=== PATIENT | male | born 1975 | race Hispanic/Latino ===

== ENCOUNTER 2018-12-04 18:06 | Emergency (ER) | payer MEDICARE ==
--- NOTE | 2018-12-04 18:24 | Emergency Department Report ---
Blank Doc - Documentation Documentation: This is a 43-year-old male that presents with URI symptoms. This initial assessment/diagnostic orders/clinical plan/treatment(s) is/are subject to change based on patient's health status, clinical progression and re- assessment by fellow clinical providers in the ED. Further treatment and workup at subsequent clinical providers discretion. Patient/guardians urged not to elope from the ED as their condition may be serious if not clinically assessed and managed. Initial orders include: 1- Patient sent to [facility] for further evaluation and treatment 2- cxr
[2018-12-04 18:26] VITALS: BP 148/77
--- NOTE | 2018-12-04 19:40 | XRay Report ---
PROCEDURE: XR CHEST ROUTINE 2V HISTORY: cough FINDINGS: Frontal and lateral views of the chest were acquired. The heart is normal in size. The lung s are hyperinflated. There is no consolidative infiltrate. IMPRESSION: Hyperinflation This document is electronically signed by Maurice Jain MD., December 04 2018 07:38:09 PM ET
--- NOTE | 2018-12-04 20:40 | Emergency Department Report ---
- General Chief Complaint: Upper Respiratory Infection Stated Complaint: CONGESTION Time Seen by Provider: 12/04/18 18:23 Source: patient Mode of arrival: Ambulatory Limitations: No Limitations - History of Present Illness Initial Comments: 43-year-old male comes in complaining of cough and nasal congestion. Patient reports he saw his primary care provider but she didn't give him anything for his cough. Patient denies any fever or chills no nausea no vomiting no chest pain or shortness of breath. Patient reports that he has an albuterol inhaler and he uses it for his cough but does not help all the way. Patient does not smoke cigarettes. Past medical history of diabetes hypertension and psych history. MD Complaint: nasal congestion -: days(s) (7) Improves With: nothing Worsens With: nothing Associated Symptoms: nasal congestion, cough. denies: fever, chills, myalgias, diaphoresis, sore throat, stiff neck, chest pain, shortness of breath, abdominal pain, nausea, vomiting, diarrhea, dysuria, rash, confusion, right sweats, weight loss, epistaxis, hoarseness, ear pain Treatments Prior to Arrival: other (albuterol inhaler) - Related Data Previous Rx's Medication Instructions Recorded Last Taken Type Ciprofloxacin [Ciprofloxacin ORAL 500 mg PO Q12H #20 ml 03/15/15 Unknown Rx LIQ] Hyoscyamine (Nf) [Levsin (Nf)] 1.875 mg PO Q4H PRN #16 tabcap 03/15/15 Unknown Rx Ondansetron [Zofran] 4 mg PO ONCE PRN #16 tablet 03/15/15 Unknown Rx Cyclobenzaprine [Flexeril 10 MG 10 mg PO TID PRN #15 tablet 07/19/15 Unknown Rx TAB] Naproxen [Naprosyn 125 mg/5 ml] 500 mg PO Q12H PRN #15 bottle 07/19/15 Unknown Rx Benzonatate [Tessalon Perle] 100 mg PO Q8H PRN #21 capsule 12/04/18 Unknown Rx Fluticasone [Flonase] 1 spray NS QDAY #1 bottle 12/04/18 Unknown Rx Loratadine/Pseudoephedrine 1 tab PO Q12H #24 tablet 12/04/18 Unknown Rx [Claritin-D 12HR] Allergies Allergy/AdvReac Type Severity Reaction Status Date / Time No Known Allergies Allergy Verified 12/04/18 18:08 ED Review of Systems ROS: Stated complaint: CONGESTION Other details as noted in HPI ENT: congestion Respiratory: cough ED Past Medical Hx - Past Medical History Previous Medical History?: Yes Hx Hypertension: Yes Hx Diabetes: Yes Hx Psychiatric Treatment: Yes - Surgical History Past Surgical History?: No - Social History Smoking Status: Never Smoker Substance Use Type: None - Medications Home Medications: Home Medications Medication Instructions Recorded Confirmed Last Taken Type Ciprofloxacin [Ciprofloxacin ORAL 500 mg PO Q12H #20 ml 03/15/15 Unknown Rx LIQ] Hyoscyamine (Nf) [Levsin (Nf)] 1.875 mg PO Q4H PRN #16 tabcap 03/15/15 Unknown Rx Ondansetron [Zofran] 4 mg PO ONCE PRN #16 tablet 03/15/15 Unknown Rx Cyclobenzaprine [Flexeril 10 MG 10 mg PO TID PRN #15 tablet 07/19/15 Unknown Rx TAB] Naproxen [Naprosyn 125 mg/5 ml] 500 mg PO Q12H PRN #15 bottle 07/19/15 Unknown Rx Benzonatate [Tessalon Perle] 100 mg PO Q8H PRN #21 capsule 12/04/18 Unknown Rx Fluticasone [Flonase] 1 spray NS QDAY #1 bottle 12/04/18 Unknown Rx Loratadine/Pseudoephedrine 1 tab PO Q12H #24 tablet 12/04/18 Unknown Rx [Claritin-D 12HR] ED Physical Exam - General Limitations: No Limitations General appearance: alert, in no apparent distress - Head Head exam: Present: atraumatic, normocephalic - Eye Eye exam: Present: normal appearance - ENT ENT exam: Present: mucous membranes moist - Expanded ENT Exam Expanded Teeth exam: Present: dental caries - Neck Neck exam: Present: normal inspection - Respiratory Respiratory exam: Present: normal lung sounds bilaterally. Absent: respiratory distress - Cardiovascular Cardiovascular Exam: Present: regular rate, normal rhythm. Absent: systolic murmur, diastolic murmur, rubs, gallop - GI/Abdominal GI/Abdominal exam: Present: soft, normal bowel sounds - Rectal Rectal exam: Present: deferred - Extremities Exam Extremities exam: Present: normal inspection - Back Exam Back exam: Present: normal inspection - Neurological Exam Neurological exam: Present: alert, oriented X3 - Psychiatric Psychiatric exam: Present: normal affect, normal mood - Skin Skin exam: Present: warm, dry, intact, normal color. Absent: rash ED Course Vital Signs 12/04/18 18:23 Temperature 97.8 F Pulse Rate 102 H Respiratory 20 Rate Blood Pressure 148/77 [Left] O2 Sat by Pulse 96 Oximetry ED Medical Decision Making - Medical Decision Making Patient has been evaluated by this provider a [facility]. Chest x-ray shows hyperinflation no signs of pneumonia bronchitis. Discussed the patient I will place him on Flonase Claritin-D and Tessalon Perles to help with his nasal congestion and cough. Discussed the patient is to increase his water intake while taking medication and to follow up with his primary care provider Dr. Rasheed Sotelo. Critical care attestation.: If time is entered above; I have spent that time in minutes in the direct care of this critically ill patient, excluding procedure time. ED Disposition Clinical Impression: Nasal congestion, Cough Disposition: DC-01 TO HOME OR SELFCARE Is pt being admited?: No Does the pt Need Aspirin: No Condition: Stable Instructions: Antitussive/Decongestant (By mouth), Allergic Rhinitis (ED), Acute Cough (ED) Additional Instructions: Please take medication as prescribed. He is very important for you to increase her water intake while taking these medications. Follow up with her primary care provider in the next 5-7 days if your symptoms persist or gets worse Prescriptions: Loratadine/Pseudoephedrine [Claritin-D 12HR] 1 tab PO Q12H #24 tablet Fluticasone [Flonase] 1 spray NS QDAY #1 bottle Benzonatate [Tessalon Perle] 100 mg PO Q8H PRN #21 capsule PRN Reason: Cough Referrals: RASHEED SOTELO DO [Referring] - 3-5 Days
== END 2018-12-04 20:50 | disposition home or self-care (01) ==
LOC: ED 18:06
DX: R05 Cough (principal); R09.81 Nasal congestion; I10 Essential (primary) hypertension; E11.9 Type 2 diabetes mellitus without complications
CPT/HCPCS: 71046; 99283

== ENCOUNTER 2019-01-12 18:59 | Emergency (ER) | payer MEDICARE ==
[2019-01-12] MEDS ORDERED: ULTRAM PO ONE (20:16)
[2019-01-12] MEDS ORDERED: TORADOL IM ONE (20:16)
--- NOTE | 2019-01-12 21:12 | Emergency Department Report ---
ED Extremity Problem HPI - General Chief complaint: Extremity Injury, Lower Stated complaint: FALL/ (R) LEG PAIN Time Seen by Provider: 01/12/19 20:12 Source: EMS Mode of arrival: Ambulatory Limitations: No Limitations - History of Present Illness Initial comments: 43-year-old male with a past medical history diabetes, hypertension, and psychiatric disorder presents to the right knee pain after ground level fall around 2 PM. Pain is rated 10/10 in intensity, constant, worse with palpation. Patient states he lost his balance and fell on his left side and denies head injury or LOC. Denies previous leg injury. Patient is in no acute distress. Severity scale (0 -10): 10 - Related Data Previous Rx's Medication Instructions Recorded Last Taken Type Ciprofloxacin [Ciprofloxacin ORAL 500 mg PO Q12H #20 ml 03/15/15 Unknown Rx LIQ] Hyoscyamine (Nf) [Levsin (Nf)] 1.875 mg PO Q4H PRN #16 tabcap 03/15/15 Unknown Rx Ondansetron [Zofran] 4 mg PO ONCE PRN #16 tablet 03/15/15 Unknown Rx Cyclobenzaprine [Flexeril 10 MG 10 mg PO TID PRN #15 tablet 07/19/15 Unknown Rx TAB] Naproxen [Naprosyn 125 mg/5 ml] 500 mg PO Q12H PRN #15 bottle 07/19/15 Unknown Rx Benzonatate [Tessalon Perle] 100 mg PO Q8H PRN #21 capsule 12/04/18 Unknown Rx Fluticasone [Flonase] 1 spray NS QDAY #1 bottle 12/04/18 Unknown Rx Loratadine/Pseudoephedrine 1 tab PO Q12H #24 tablet 12/04/18 Unknown Rx [Claritin-D 12HR] Naproxen [Naprosyn TAB] 500 mg PO BID PRN #30 tablet 01/12/19 Unknown Rx traMADol [Ultram 50 MG tab] 50 mg PO Q6HR PRN #20 tablet 01/12/19 Unknown Rx Allergies Allergy/AdvReac Type Severity Reaction Status Date / Time No Known Allergies Allergy Verified 12/04/18 18:08 ED Review of Systems ROS: Stated complaint: FALL/ (R) LEG PAIN Other details as noted in HPI Comment: All other systems reviewed and negative ED Past Medical Hx - Past Medical History Previous Medical History?: Yes Hx Hypertension: Yes Hx Diabetes: Yes Hx Psychiatric Treatment: Yes - Surgical History Past Surgical History?: No - Social History Smoking Status: Never Smoker Substance Use Type: None - Medications Home Medications: Home Medications Medication Instructions Recorded Confirmed Last Taken Type Ciprofloxacin [Ciprofloxacin ORAL 500 mg PO Q12H #20 ml 03/15/15 Unknown Rx LIQ] Hyoscyamine (Nf) [Levsin (Nf)] 1.875 mg PO Q4H PRN #16 tabcap 03/15/15 Unknown Rx Ondansetron [Zofran] 4 mg PO ONCE PRN #16 tablet 03/15/15 Unknown Rx Cyclobenzaprine [Flexeril 10 MG 10 mg PO TID PRN #15 tablet 07/19/15 Unknown Rx TAB] Naproxen [Naprosyn 125 mg/5 ml] 500 mg PO Q12H PRN #15 bottle 07/19/15 Unknown Rx Benzonatate [Tessalon Perle] 100 mg PO Q8H PRN #21 capsule 12/04/18 Unknown Rx Fluticasone [Flonase] 1 spray NS QDAY #1 bottle 12/04/18 Unknown Rx Loratadine/Pseudoephedrine 1 tab PO Q12H #24 tablet 12/04/18 Unknown Rx [Claritin-D 12HR] Naproxen [Naprosyn TAB] 500 mg PO BID PRN #30 tablet 01/12/19 Unknown Rx traMADol [Ultram 50 MG tab] 50 mg PO Q6HR PRN #20 tablet 01/12/19 Unknown Rx ED Physical Exam - General Limitations: No Limitations - Other Other exam information: General: No limitations, patient is alert in no acute distress Head exam: Atraumatic, normocephalic Eyes exam: Normal appearance, pupils equal reactive to light, extraocular movements intact ENT: Moist mucous membrane, normal oropharynx Neck exam: Normal inspection, full range of motion, no meningismus nontender Respiratory exam: Clear to auscultation bilateral, no wheezes, rales, crackles Cardiovascular: Normal rate and rhythm, normal heart sounds Abdomen: Soft, nondistended, and nontender, with normal bowel sounds, no rebound, or guarding Extremity: No gross deformity or edema. Tenderness at the patella tendon. 2+ DP pulse. Limited flexion secondary to pain. Back: Normal Inspection, full range of motion, no tenderness Neurologic: Alert, oriented x3, cranial nerves intact, no motor or sensory deficit Psychiatric: normal affect, normal mood Skin: Warm, dry, intact ED Course Vital Signs 01/12/19 19:37 Temperature 98.9 F Pulse Rate 86 Respiratory 19 Rate Blood Pressure 120/74 [Left] O2 Sat by Pulse 98 Oximetry ED Medical Decision Making - Radiology Data Radiology results: report reviewed PROCEDURE: RIGHT TIBIA AND FIBULA TECHNIQUE: RIGHT tibia and fibula radiographs, AP and lateral views. CPT 59746 HISTORY: Trauma COMPARISONS: None . FINDINGS: Fracture (s) and/or Dislocation(s): None . Joint space(s): Normal . Soft tissues: Normal . Bone mineralization: Normal . Foreign bodies: None . IMPRESSION: Normal Examination . - Medical Decision Making Patient received tramadol and Toradol for pain no fxt knee immobilizer and crutches ortho f/u - Differential Diagnosis fracture, contusion, sprain Critical Care Time: No Critical care attestation.: If time is entered above; I have spent that time in minutes in the direct care of this critically ill patient, excluding procedure time. ED Disposition Clinical Impression: Knee strain Qualifiers: Encounter type: initial encounter Laterality: right Qualified Code(s): S86.911A - Strain of unspecified muscle(s) and tendon(s) at lower leg level, right leg, initial encounter Disposition: TO HOME OR SELFCARE Is pt being admited?: No Does the pt Need Aspirin: No Condition: Stable Instructions: Knee Sprain (ED) Additional Instructions: Take the medication as prescribed. Follow up with your doctor or the clinic/doctor provided. Return if symptoms worsen as indicated by your discharge instructions Prescriptions: Naproxen [Naprosyn TAB] 500 mg PO BID PRN #30 tablet PRN Reason: Pain, Moderate (4-6) traMADol [Ultram 50 MG tab] 50 mg PO Q6HR PRN #20 tablet PRN Reason: Pain , Severe (7-10) Referrals: AILYN IRVIN MD [Primary Care Provider] - 3-5 Days [facility] [Provider Group] - 3-5 Days (Primary care clinic) NINFA PATEL MD [Staff Physician] - 3-5 Days (Orthopedic doctor) Time of Disposition: 22:50
[2019-01-12] MEDS ORDERED: TORADOL ONE (22:27)
[2019-01-12] MEDS ORDERED: ULTRAM ONE (22:27)
--- NOTE | 2019-01-12 22:43 | XRay Report ---
PROCEDURE: RIGHT TIBIA AND FIBULA TECHNIQUE: RIGHT tibia and fibula radiographs, AP and lateral views. CPT 38087 HISTORY: Trauma COMPARISONS: None . FINDINGS: Fracture (s) and/or Dislocation(s): None . Joint space(s): Normal . Soft tissues: Normal . Bone mineralization: Normal . Foreign bodies: None . IMPRESSION: Normal Examination . This document is electronically signed by Yoan Caldwell MD., January 12 2019 10:40:50 PM ET
[2019-01-13 19:36] VITALS: BP 120/74
== END 2019-01-12 23:23 | disposition home or self-care (01) ==
LOC: ED 18:59
DX: S86.911A Strain of unspecified muscle(s) and tendon(s) at lower leg level, right leg, initial encounter (principal); E11.9 Type 2 diabetes mellitus without complications; I10 Essential (primary) hypertension; W18.39XA Other fall on same level, initial encounter; Y93.89 Activity, other specified; Y92.89 Other specified places as the place of occurrence of the external cause; Y99.8 Other external cause status
CPT/HCPCS: 29505; 73590; 96372; 99284; J1885

== ENCOUNTER 2022-02-03 20:14 | Emergency (ER) | payer MEDICARE ==
[2022-02-03 21:46] VITALS: BP 124/80
--- NOTE | 2022-02-04 07:28 | Emergency Department Report ---
HPI - General Chief Complaint: Extremity Injury, Lower Time Seen by Provider: 02/04/22 07:13 - HPI HPI: Room 37 The patient is a 46-year-old male present with chief complaint of right lower extremity swelling. The patient states he noted swelling of his right lower extremity 4 days ago. 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 The patient states he believes that the shoe was too small and this is what caused his swelling. Patient states he has pain only with weightbearing. Patient denies history of fever ED Past Medical Hx - Past Medical History Previous Medical History?: Yes Hx Hypertension: Yes Hx Diabetes: Yes Hx Psychiatric Treatment: Yes - Surgical History Past Surgical History?: Yes Additional Surgical History: Amputation of toes right foot. - Family History Family history: no significant - Social History Smoking Status: Never Smoker Substance Use Type: None (Denies illicit drug use) - Medications Home Medications: Home Medications Medication Instructions Recorded Confirmed Last Taken Type Ciprofloxacin [Ciprofloxacin ORAL 500 mg PO Q12H #20 ml 03/15/15 Unknown Rx LIQ] Hyoscyamine (Nf) [Levsin (Nf)] 1.875 mg PO Q4H PRN #16 tabcap 03/15/15 Unknown Rx Ondansetron [Zofran] 4 mg PO ONCE PRN #16 tablet 03/15/15 Unknown Rx Cyclobenzaprine [Flexeril 10 MG 10 mg PO TID PRN #15 tablet 07/19/15 Unknown Rx TAB] Naproxen (Nf) [Naprosyn 125 mg/5 500 mg PO Q12H PRN #15 bottle 07/19/15 Unknown Rx ml] Benzonatate [Tessalon Perle] 100 mg PO Q8H PRN #21 capsule 12/04/18 Unknown Rx Fluticasone [Flonase] 1 spray NS QDAY #1 bottle 12/04/18 Unknown Rx Loratadine/Pseudoephedrine 1 tab PO Q12H #24 tablet 12/04/18 Unknown Rx [Claritin-D 12HR] Naproxen [Naprosyn TAB] 500 mg PO BID PRN #30 tablet 01/12/19 Unknown Rx traMADoL [Ultram 50 MG tab] 50 mg PO Q6HR PRN #20 tablet 01/12/19 Unknown Rx Furosemide [Lasix] 20 mg PO QDAY #7 tablet 02/04/22 Unknown Rx ED Review of Systems ROS: Stated complaint: RIGHT FOOT SWOLLEN Other details as noted in HPI Constitutional: denies: fever Eyes: denies: eye pain ENT: denies: throat pain Respiratory: no symptoms reported Cardiovascular: denies: chest pain Endocrine: no symptoms reported Gastrointestinal: denies: abdominal pain Genitourinary: denies: dysuria Musculoskeletal: denies: back pain Neurological: denies: headache Hematological/Lymphatic: other (Bilateral lower extremity edema) Physical Exam - Physical Exam Vital Signs: Vital Signs 02/03/22 21:19 Temperature 98.0 F Pulse Rate 91 H Respiratory 18 Rate Blood Pressure 124/80 O2 Sat by Pulse 97 Oximetry Physical Exam: GENERAL: The patient is well-developed well-nourished male lying on stretcher not appearing to be in acute distress. [] HEENT: Normocephalic. Atraumatic. Extraocular motions are intact. Patient has moist mucous membranes. NECK: Supple. Trachea midline CHEST/LUNGS: Clear to auscultation. There is no respiratory distress noted. HEART/CARDIOVASCULAR: Regular. There is no tachycardia. There is no gallop rub or murmur. ABDOMEN: Abdomen is soft, with tenderness to palpation in the right upper quadrant, midepigastric and left upper quadrant. The remainder the abdomen is soft and nontender. Patient has normal bowel sounds. There is no abdominal distention. SKIN: There is no rash. There 1-2+ bilateral lower extremity pitting edema. There is no diaphoresis. NEURO: The patient is awake, alert, and oriented. The patient is cooperative. The patient has no focal neurologic deficits. The patient has normal speech. GCS 15 MUSCULOSKELETAL: There is no evidence of acute injury. ED Course Vital Signs 02/03/22 21:19 Temperature 98.0 F Pulse Rate 91 H Respiratory 18 Rate Blood Pressure 124/80 O2 Sat by Pulse 97 Oximetry ED Medical Decision Making - Lab Data Result diagrams: 02/04/22 08:34 02/04/22 08:34 Laboratory Tests 02/04/22 02/04/22 08:34 08:34 WBC 13.7 H RBC 4.62 Hgb 13.0 Hct 40.6 MCV 88 MCH 28 MCHC 32 RDW 13.9 Plt Count 366 Lymph % (Auto) 15.0 [place] % (Auto) 11.0 H Eos % (Auto) 2.2 Baso % (Auto) 0.6 Lymph # (Auto) 2.1 [place] # (Auto) 1.5 H Eos # (Auto) 0.3 Baso # (Auto) 0.1 Seg Neutrophils % 71.2 H Seg Neutrophils # 9.8 H Sodium 134 L Potassium 3.8 Chloride 97.4 L Carbon Dioxide 25 Anion Gap 15 BUN 9 Creatinine 0.7 L Estimated GFR > 60 BUN/Creatinine Ratio 13 Glucose 212 H Calcium 8.8 Total Bilirubin 0.60 AST 13 ALT 10 Alkaline Phosphatase 85 NT-Pro-B Natriuret Pep 24.37 Total Protein 6.7 Albumin 4.0 Albumin/Globulin Ratio 1.5 - Radiology Data Radiology results: report reviewed (Bilateral lower extremity Doppler), image reviewed (Bilateral lower extremity Doppler) [facility] [address] [place] [address] Vascular Lab Report Signed Patient: LEODAN DECKER MR#: [id number] : 1975 Acct:[id number] Age/Sex: 46 / M ADM Date: 02/03/22 Loc: ED Attending Dr: Ordering Physician: JIMI WHITAKER MD Date of Service: 02/04/22 Procedure(s): VL venous duplex LE BILAT Accession Number(s): [id number] cc: JIMI WHITAKER MD Bilateral lower extremity Doppler venous ultrasound INDICATION: Edema FINDINGS: Bilateral common femoral veins, superficial femoral veins and popliteal veins have normal compressibility and phasic flow IMPRESSION: No evidence for DVT. Signer Name: Richie Vazquez MD Signed: 02/04/2022 8:38 AM Workstation Name: [id number] Transcribed By: CW Dictated By: JANEEN VAZQUEZ MD Electronically Authenticated By: JANEEN VAZQUEZ MD Signed Date/Time: 02/04/22837 DD/ 7 TD/TT: - Differential Diagnosis Peripheral edema, hypoalbuminemia, renal failure, CHF Critical care attestation.: If time is entered above; I have spent that time in minutes in the direct care of this critically ill patient, excluding procedure time. ED Disposition Clinical Impression: Peripheral edema Disposition: HOME / SELF CARE / HOMELESS Is pt being admited?: No Does the pt Need Aspirin: No Condition: Stable Instructions: Peripheral Edema Additional Instructions: Return to the emergency department should you develop worsening symptoms, inability to tolerate food or liquids, high fever or any other concerns Prescriptions: Furosemide [Lasix] 20 mg PO QDAY #7 tablet Referrals: BILL ENGLE MD [Primary Care Provider] - 3-5 Days Time of Disposition: 09:55
--- NOTE | 2022-02-04 08:43 | Vascular Lab Report ---
Bilateral lower extremity Doppler venous ultrasound INDICATION: Edema FINDINGS: Bilateral common femoral veins, superficial femoral veins and popliteal veins have normal c ompressibility and phasic flow IMPRESSION: No evidence for DVT. Signer Name: Richie Vazquez MD Signed: 02/04/2022 8:38 AM Workstation Name: [id number]
[2022-02-04 08:58] LABS: Basophils # (Auto) 0.1 K/mm3 (0.0-0.1); Basophils % (Auto) 0.6 % (0.0-1.8); Eosinophils # (Auto) 0.3 K/mm3 (0.0-0.4); Eosinophils % (Auto) 2.2 % (0.0-4.3); Hematocrit 40.6 % (35.5-45.6); Lymphocytes # (Auto) 2.1 K/mm3 (1.2-5.4); Mean Corpuscular HGB Conc 32 % (32-34); Mean Corpuscular Volume 88 fl (84-94); Monocytes # (Auto) 1.5 K/mm3 (0.0-0.8); Platelet Count 366 K/mm3 (140-440); Red Blood Count 4.62 M/mm3 (3.65-5.03); Red Cell Distribution Width 13.9 % (13.2-15.2)
[2022-02-04 09:21] LABS: Alanine Aminotransferase 10 units/L (7-56); Blood Urea Nitrogen 9 mg/dL (9-20); Calcium 8.8 mg/dL (8.4-10.2); Hemolysis Index 23
[2022-02-04 09:28] LABS: BUN/Creatinine Ratio 13
== END 2022-02-04 11:12 | disposition home or self-care (01) ==
LOC: ED 20:14
DX: R60.0 Localized edema (principal); I10 Essential (primary) hypertension; E11.9 Type 2 diabetes mellitus without complications
CPT/HCPCS: 36415; 80053; 83880; 85025; 93970; 99283; 99284